=== PATIENT | female | born 1945 | race Caucasian/White ===

== ENCOUNTER 2021-09-29 06:36 | Day surgery (SDC) | payer MEDICARE, BC ==
[2021-09-29] VITALS (11 sets, daily range): BP systolic 100–164; BP diastolic 42–97
[~2021-09-29] VITALS: Ht 157.5 cm; Wt 83.6 kg
[2021-09-29] MEDS ORDERED: METF-438 PO (07:22)
[2021-09-29] MEDS ORDERED: EVOL140P3 SQ (07:22)
[2021-09-29] MEDS ORDERED: PER5325T PO (07:22)
[2021-09-29] MEDS ORDERED: LOSA50TA64 PO (07:22)
[2021-09-29] MEDS ORDERED: CLOP75TA34 PO (07:22)
[2021-09-29] MEDS ORDERED: AMLO5TAB16 PO (07:22)
[2021-09-29] MEDS ORDERED: AMIO200T61 PO (07:22)
[2021-09-29] MEDS ORDERED: NITR0.4T48 (07:22)
[2021-09-29] MEDS ORDERED: PANT40TA54 PO (07:22)
[2021-09-29] MEDS ORDERED: MONT-40 PO (07:22)
[2021-09-29] MEDS ORDERED: METO-411 PO (07:28)
[2021-09-29] MEDS ORDERED: RANO10005 PO (07:28)
[2021-09-29] MEDS ORDERED: EPIN0.3A3 IM (07:28)
[2021-09-29] MEDS ORDERED: SITA100T15 PO (07:28)
[2021-09-29] MEDS ORDERED: TRIA1CAP6 PO (07:28)
[2021-09-29 07:35] LABS: BASOPHILS % (AUTO) 0.5 % (0-1); EOSINOPHILS # (AUTO) 0.1 X10'3 (0-0.9); EOSINOPHILS % (AUTO) 2.5 % (0-6); HEMATOCRIT 35.3 % (35.0-45.0); HEMOGLOBIN 11.7 g/dl (12.0-16.0); LYMPHOCYTES # (AUTO) 1.8 X10'3 (1.1-4.8); LYMPHOCYTES % (AUTO) 30.9 % (21-51); MEAN CORPUSCULAR HEMOGLOBIN 31.1 PG (27.0-31.0); MEAN CORPUSCULAR VOLUME 94.3 FL (78-98); MONOCYTES # (AUTO) 0.5 X10'3 (0-0.9); MONOCYTES % (AUTO) 8.9 % (2-12); NEUTROPHILS # (AUTO) 3.3 X10'3 (1.8-7.7); NEUTROPHILS % (AUTO) 57.2 % (42-75); PLATELET COUNT 226 X10'3 (140-440); RED BLOOD COUNT 3.74 X10'6 (4.20-5.60); RED CELL DISTRIBUTION WIDTH 13.4 % (11.5-14.5); WHITE BLOOD COUNT 5.8 X10'3 (4.5-11.0)
[2021-09-29] MEDS ORDERED: [UNRECOGNIZED DRUG - REMARK] (07:41)
[2021-09-29] MEDS ORDERED: MULT-1085 PO (07:41)
[2021-09-29 07:53] LABS: ALBUMIN 3.7 G/DL (3.4-5.0); ANION GAP 11 (8-16); BLOOD UREA NITROGEN 27 MG/DL (7-18); BUN/CREATININE RATIO 21.4 (6.6-38.0); CALCIUM 8.6 MG/DL (8.5-10.1); CHLORIDE 108 MMOL/L (99-107); CREATININE 1.26 MG/DL (0.40-0.90); GLUCOSE 122 MG/DL (70-104); MAGNESIUM 1.7 MG/DL (1.5-2.4); POTASSIUM 4.4 MMOL/L (3.5-5.1); SODIUM 142 MMOL/L (135-145); TOTAL CARBON DIOXIDE 23.1 MMOL/L (24-32); eGFR 41 ML/MIN
[2021-09-29] MEDS ORDERED: diphenhydrAMINE 25mg capsule PO ONE (07:55)
[2021-09-29] MEDS ORDERED: normal saline 1000ml 1,000 ML IV ONE (08:45)
[2021-09-29] MEDS ORDERED: sodium bicarbonate (8.4%) inj. 150 MEQ in dextrose 5%-water 1,000 ML IV ONE (08:45)
[2021-09-29] MEDS ORDERED: verapamil 2.5 mg/ml inj IV ONE (08:52)
[2021-09-29] MEDS ORDERED: nitroGLYCERIN-Tridil 50MG/D5W 250 ML IV ONE (08:52)
[2021-09-29] MEDS ORDERED: fentaNYL/PF 50MCG/1 ML 2ML syringe ONE (08:53)
[2021-09-29] MEDS ORDERED: heparin 1,000unit/ml 10ml vial 10 ML ONE (08:53)
[2021-09-29] MEDS ORDERED: iohexol 350 MG/1 ML 200ml bottle ONE (08:53)
[2021-09-29] MEDS ORDERED: midazolam 1 mg/ML 2ml injection ONE ×2 (08:53→09:38)
[2021-09-29] MEDS ORDERED: LIDOCAINE 1% w/preservative (10 MG/ML) inj. 10mL VIAL ONE (08:53)
[2021-09-29] MEDS ORDERED: sodium bicarbonate (8.4%) inj. 150 ML in dextrose 5%-water 1,000 ML IV ONE (09:15)
[2021-09-29] MEDS ORDERED: normal saline 1,000 ML IV SCH (09:15)
[2021-09-29] MEDS ORDERED: diphenhydrAMINE 50 mg/ml inj ONE (09:20)
[2021-09-29] MEDS ORDERED: iohexol 350 MG/ML 50ML vial IV ONE (10:20)
[2021-09-29] MEDS ORDERED: clopidogrel 300mg tablet ONE (10:44)
[2021-09-29] MEDS ORDERED: normal saline 1000ml 1,000 ML IV SCH (11:20)
[2021-09-29] MEDS ORDERED: ondansetron/PF 4mg/2ml inj IV PRN (11:20)
[2021-09-29] MEDS ORDERED: proCHLORperazine 10 MG/2 ml inj IV PRN (11:25)
[2021-09-29] MEDS ORDERED: HYDROcodone/acetaminophen 5mg/325mg tablet PO PRN (11:25)
[2021-09-29] MEDS ORDERED: HYDROcodone/acetaminophen 10/325mg tab PO PRN (11:25)
== END 2021-09-29 16:15 | disposition home or self-care (01) ==
LOC: SSTAY O 06:36
PROVIDERS: ATTEND Internal Medicine Cardiovascular Disease
DX: R94.39 Abnormal result of other cardiovascular function study (principal); R07.89 Other chest pain; I25.118 Atherosclerotic heart disease of native coronary artery with other forms of angina pectoris; I47.2 Ventricular tachycardia; I48.0 Paroxysmal atrial fibrillation; I42.5 Other restrictive cardiomyopathy; I34.2 Nonrheumatic mitral (valve) stenosis; I10 Essential (primary) hypertension; E78.5 Hyperlipidemia, unspecified; E13.39 Other specified diabetes mellitus with other diabetic ophthalmic complication; K21.9 Gastro-esophageal reflux disease without esophagitis; I44.7 Left bundle-branch block, unspecified; Z95.5 Presence of coronary angioplasty implant and graft; Z79.84 Long term (current) use of oral hypoglycemic drugs; Z79.899 Other long term (current) drug therapy; Z79.01 Long term (current) use of anticoagulants; Z88.8 Allergy status to other drugs, medicaments and biological substances; Z88.2 Allergy status to sulfonamides
CPT/HCPCS: 36415; 80048; 83735; 85025; 85610; 93005; 93458; 93571; 99152; 99153; C1725; C1751; C1769; C1874; C1894; C9600; C9601; J1200; J1644; J2250; J3010; J3490; Q9967; 0523T; 92920; A4620

== ENCOUNTER 2023-12-20 05:36 | Day surgery (SDC) | payer MEDICARE, BC ==
[2023-12-16 11:11] LABS: BASOPHILS % (AUTO) 0.2 % (0-1); EOSINOPHILS % (AUTO) 0.1 % (0-6); LYMPHOCYTES # (AUTO) 1.7 X10'3 (1.1-4.8); LYMPHOCYTES % (AUTO) 29.1 % (21-51); MEAN CORPUSCULAR HGB CONC 32.8 g/dL (33.0-36.5); MEAN CORPUSCULAR VOLUME 94.6 FL (78-98); MEAN PLATELET VOLUME 8.2 FL (7.4-10.4); MONOCYTES # (AUTO) 0.6 X10'3 (0-0.9); MONOCYTES % (AUTO) 9.5 % (2-12); NEUTROPHILS # (AUTO) 3.6 X10'3 (1.8-7.7); NEUTROPHILS % (AUTO) 61.1 % (42-75); PRE OP HEMATOCRIT 40.1 % (35.0-45.0); PRE OP HEMOGLOBIN 13.1 g/dL (12.0-16.0); PRE OP PLATELET COUNT 274 X10'3 (140-440); PRE OP WHITE BLOOD COUNT 5.9 10'3 (4.8-10.8); RED BLOOD COUNT 4.24 X10'6 (4.20-5.60); RED CELL DISTRIBUTION WIDTH 14.1 % (11.5-14.5)
[2023-12-16 11:22] LABS: ALBUMIN 4.1 G/DL (3.4-5.0); ALBUMIN/GLOBULIN RATIO 1.2 (1.1-1.5); ALKALINE PHOSPHATASE 69 IU/L (46-116); BLOOD UREA NITROGEN 27 MG/DL (7-18); CALCIUM 8.8 MG/DL (8.5-10.1); CHLORIDE 102 MMOL/L (99-107); PRE OP ALT 37 U/L (30-65); PRE OP ANION GAP 8 (8-16); PRE OP AST 16 U/L (10-37); PRE OP BILIRUB, TOTAL 0.5 MG/DL (0.0-1.0); PRE OP GLUCOSE 129 MG/DL (70-104); PRE OP POTASSIUM 3.6 MMOL/L (3.4-5.1); PRE OP SODIUM 139 MMOL/L (135-145); TOTAL PROTEIN 7.6 G/DL (6.4-8.2); eGFR 54 ML/MIN
[~2023-12-20] VITALS: Ht 157.5 cm; Wt 84.7 kg
[2023-12-20] MEDS: cefazolin 2gm/D5W 100mL 100 ML IV ONE (05:30)
[~2023-12-20 05:36] MED LIST: AMI200T PO; CLOP75TA34 PO; EVOL140P3 SQ; IBAN150T21 PO; LOSA50TA64 PO; MONT-40 PO; PANT40TA54 PO; PER5325T PO; RANO10005 PO; RIVA20TA PO; SEMA1PEN3 SUBCUT; TRET40CR9 TOP; [UNRECOGNIZED DRUG - REMARK]
[2023-12-20 05:50] VITALS: BP 155/82; PULSE 79; RESP 16; TEMP 97.9; O2SAT 97
[2023-12-20] MEDS: famotidine 20mg tablet PO ONE (06:27)
[2023-12-20] MEDS: ringers solution, lacted 1,000 ML IV SCH (06:28)
[2023-12-20] MEDS ORDERED: LIDOcaine 2% (20mg/ml) 5ml vial ONE (06:42)
[2023-12-20] MEDS ORDERED: fentaNYL/PF 50MCG/1 ML 2ML syringe IV PRN ×2 (07:50)
[2023-12-20] MEDS ORDERED: ringers solution, lacted 1,000 ML IV SCH ×2 (07:50→07:55)
[2023-12-20] MEDS ORDERED: hydrALAZINE 20mg/ml inj. IV PRN ×2 (07:50→07:55)
[2023-12-20] MEDS ORDERED: morphine 4 MG/ML inj SYRINge IV PRN ×2 (07:50→07:55)
[2023-12-20] MEDS ORDERED: ondansetron/PF 4mg/2ml inj IV PRN ×2 (07:50→07:55)
[2023-12-20] MEDS ORDERED: morphine 2 MG/ML inj. syringe IV PRN ×2 (07:50→07:55)
[2023-12-20] MEDS ORDERED: labetalol 20mg/4ml (5mg/ml) syringe IV PRN ×2 (07:50→07:55)
[2023-12-20] MEDS ORDERED: fentaNYL/PF 50MCG/1 ML 2ML syringe ONE (07:57)
[2023-12-20] MEDS ORDERED: MIDAZolam 1mg/ml 10ml vial ONE (07:57)
[2023-12-20] MEDS ORDERED: LIDOcaine 0.5% (5mg/ml) 50ml vial ONE (07:58)
[2023-12-20] MEDS ORDERED: ketorolac trometh 30MG/ML vial 30 MG/ML VIAL ONE (07:58)
[2023-12-20] MEDS ORDERED: acetaminophen 1,000mg/100ml IV 100 ML IV ONE (08:16)
[2023-12-20 08:59] VITALS: BP 156/72; PULSE 72; RESP 16; O2SAT 99
--- NOTE | 2023-12-20 08:59 | NUR ---
Received from OR via [facility], accompanied by Anesthesiologist and report given by DULCE Anesthesiologist. PATIENT WAKING UP, DENIES PAIN, V/S WNL, SCD ON, PIV 20G TO LEFT HAND, RIGHT WRIST DRESSING C/D/I. ICE AND ELEVATED RUE. Addendum: 12/20/23 at 0916 by Fermin Hernandez RN Amended: Links added.
[2023-12-20 09:10] VITALS: BP 166/78; PULSE 70; RESP 14; O2SAT 98
[2023-12-20] MEDS: BUPIVAcaine/PF 2.5mg/ml (0.25%) 10ml vial ONE (09:11)
[2023-12-20 09:20] VITALS: BP 169/80; PULSE 64; RESP 12; O2SAT 96
[2023-12-20 09:30] VITALS: BP 147/75; PULSE 68; RESP 15; O2SAT 97
--- NOTE | 2023-12-20 09:39 | NUR ---
ALL DISCHARGE CRITERIA HAS BEEN MET. VSS, PAIN AT A TOLERABLE LEVEL, ABLE TO SAFELY AMBULATE AND TRANSFER SELF. IV TAKEN OUT WITHOUT ANY COMPLICATIONS. ALL DISCHARGE INSTRUCTIONS COVERED WITH PATIENT AND ALL QUESTIONS ANSWERED. PATIENT TAKEN OUT VIA WHEELCHAIR WITH ALL BELONGINGS TO PERSONAL VEHICLE WHERE FAMILY DROVE PATIENT HOME. Addendum: 12/20/23 at 0914 by Fermin Hernandez RN Amended: Links added.
== END 2023-12-20 09:39 | disposition home or self-care (01) ==
LOC: PAS 05:36
PROVIDERS: ATTEND Orthopaedic Surgery Hand Surgery
DX: M19.131 Post-traumatic osteoarthritis, right wrist (principal); Z79.899 Other long term (current) drug therapy; Z90.49 Acquired absence of other specified parts of digestive tract; Z95.818 Presence of other cardiac implants and grafts; Z96.651 Presence of right artificial knee joint; Z98.890 Other specified postprocedural states; Z88.1 Allergy status to other antibiotic agents; Z88.2 Allergy status to sulfonamides; Z88.5 Allergy status to narcotic agent; Z88.8 Allergy status to other drugs, medicaments and biological substances; Z80.9 Family history of malignant neoplasm, unspecified
CPT/HCPCS: 25820; 36415; 80053; 82948; 85025; A4618; A6449; A7000; C1713; J0131; J0690; J1885; J2001; J2250; J3010; J3490; J7030; J7120; Z7506; Z7508; Z7512; Z7610

== ENCOUNTER 2024-03-27 08:27 | Day surgery (SDC) | payer MEDICARE, BC ==
[2024-03-22 15:57] LABS: BASOPHILS % (AUTO) 0.6 % (0-1); EOSINOPHILS # (AUTO) 0.1 X10'3 (0-0.9); EOSINOPHILS % (AUTO) 1.9 % (0-6); LYMPHOCYTES % (AUTO) 38.5 % (21-51); MEAN CORPUSCULAR HEMOGLOBIN 31.1 PG (27.0-31.0); MEAN CORPUSCULAR HGB CONC 32.6 g/dL (33.0-36.5); MEAN CORPUSCULAR VOLUME 95.4 FL (78-98); MEAN PLATELET VOLUME 8.3 FL (7.4-10.4); MONOCYTES # (AUTO) 0.6 X10'3 (0-0.9); NEUTROPHILS # (AUTO) 2.5 X10'3 (1.8-7.7); PRE OP HEMATOCRIT 38.7 % (35.0-45.0); PRE OP HEMOGLOBIN 12.6 g/dL (12.0-16.0); PRE OP PLATELET COUNT 276 X10'3 (140-440); PRE OP WHITE BLOOD COUNT 5.2 10'3 (4.8-10.8); RED BLOOD COUNT 4.06 X10'6 (4.20-5.60); RED CELL DISTRIBUTION WIDTH 14.1 % (11.5-14.5)
[2024-03-22 16:04] LABS: ALBUMIN 3.8 G/DL (3.4-5.0); ALBUMIN/GLOBULIN RATIO 1.3 (1.1-1.5); ALKALINE PHOSPHATASE 43 IU/L (46-116); BLOOD UREA NITROGEN 21 MG/DL (7-18); BUN/CREATININE RATIO 20.4 (10.0-20.0); CALCIUM 8.6 MG/DL (8.5-10.1); CHLORIDE 102 MMOL/L (99-107); CREATININE 1.03 MG/DL (0.40-0.90); PRE OP ALT 28 U/L (30-65); PRE OP ANION GAP 8 (8-16); PRE OP AST 17 U/L (10-37); PRE OP BILIRUB, TOTAL 0.3 MG/DL (0.0-1.0); PRE OP GLUCOSE 137 MG/DL (70-104); PRE OP POTASSIUM 3.4 MMOL/L (3.4-5.1); PRE OP SODIUM 135 MMOL/L (135-145); TOTAL CARBON DIOXIDE 25.3 MMOL/L (24-32); TOTAL PROTEIN 6.8 G/DL (6.4-8.2); eGFR 52 ML/MIN
[~2024-03-27] VITALS: Ht 157.5 cm; Wt 85.0 kg
[2024-03-27] VITALS (9 sets, daily range): BP systolic 146–164; BP diastolic 67–77; PULSE 60; RESP 12–17; TEMP 98.2; O2SAT 96–98
[~2024-03-27 08:27] MED LIST changes: -CLOP75TA34 PO; +DOCUMENT DATE & TIME OF BETA-BLOCKER PO ONE; +EMPA10TA PO; +EZET10TA48 PO; +FURO20TA4 PO; +METO200T37 PO; +NITR0.4T48; -SEMA1PEN3 SUBCUT; +SPIR25TA5 PO; -TRET40CR9 TOP; -[UNRECOGNIZED DRUG - REMARK]; +ringers solution, lacted 1,000 ML IV SCH
[2024-03-27] MEDS ORDERED: LIDOcaine 1% 30ml preserv. free vial ONE (10:00)
[2024-03-27] MEDS: ceFAZolin 2gm in dextrose, iso 50 ML IV ONE (10:34)
[2024-03-27] MEDS: famotidine 20mg tablet PO ONE (10:36)
[2024-03-27] MEDS ORDERED: BUPIVAcaine/PF 2.5mg/ml (0.25%) 10ml vial ONE (12:17)
[2024-03-27] MEDS ORDERED: midazolam 1 mg/ML 2ml injection ONE (13:22)
[2024-03-27] MEDS ORDERED: fentaNYL/PF 50MCG/1 ML 2ML syringe ONE (13:22)
[2024-03-27] MEDS: oxyCODONE/APAP 5-325mg tablet PO ONE (14:47)
== END 2024-03-27 15:32 | disposition home or self-care (01) ==
LOC: PAS 08:27
PROVIDERS: ATTEND Orthopaedic Surgery Hand Surgery
DX: T84.84XA Pain due to internal orthopedic prosthetic devices, implants and grafts, initial encounter (principal); I10 Essential (primary) hypertension; I25.10 Atherosclerotic heart disease of native coronary artery without angina pectoris; E11.9 Type 2 diabetes mellitus without complications; E66.9 Obesity, unspecified; K21.9 Gastro-esophageal reflux disease without esophagitis; I42.9 Cardiomyopathy, unspecified; Z86.718 Personal history of other venous thrombosis and embolism; Z79.02 Long term (current) use of antithrombotics/antiplatelets; Z79.899 Other long term (current) drug therapy; Z90.49 Acquired absence of other specified parts of digestive tract; Z98.890 Other specified postprocedural states; Z68.33 Body mass index [BMI] 33.0-33.9, adult; Z88.1 Allergy status to other antibiotic agents; Z88.2 Allergy status to sulfonamides; Z88.5 Allergy status to narcotic agent; Z88.8 Allergy status to other drugs, medicaments and biological substances; Z80.9 Family history of malignant neoplasm, unspecified; Y79.2 Prosthetic and other implants, materials and accessory orthopedic devices associated with adverse incidents; Y99.8 Other external cause status
CPT/HCPCS: 20680; 36415; 80053; 82948; 85025; A4215; A4618; A6402; A6449; A7000; J0690; J2003; J2250; J3010; J3490; J7030; J7120; Z7506; Z7512; Z7610

== ENCOUNTER 2024-06-05 09:35 | Outpatient (CLI) | payer MEDICARE, BC ==
[~2024-06-05 09:35] MED LIST changes: -DOCUMENT DATE & TIME OF BETA-BLOCKER PO ONE; -ringers solution, lacted 1,000 ML IV SCH
[2024-06-05] MEDS ORDERED: iohexol 300mg/ml 100ml inj. ONE (09:50)
== END 2024-06-05 23:59 | disposition home or self-care (01) ==
LOC: RAD 09:35
PROVIDERS: ATTEND Physician Assistant
DX: T84.84XA Pain due to internal orthopedic prosthetic devices, implants and grafts, initial encounter (principal); M19.139 Post-traumatic osteoarthritis, unspecified wrist; M19.031 Primary osteoarthritis, right wrist; M25.731 Osteophyte, right wrist; M25.431 Effusion, right wrist; M85.841 Other specified disorders of bone density and structure, right hand; Y79.8 Miscellaneous orthopedic devices associated with adverse incidents, not elsewhere classified
CPT/HCPCS: 73200; Q9967